=== PATIENT | female | born 2000 ===

== ENCOUNTER 2021-12-23 23:49 | Emergency (ER) | payer SELFPAY ==
[2021-12-24 00:02] VITALS: BP 109/49
[2021-12-24 00:26] LABS: Bilirubin,Urine NEG (Negative); Blood,Urine NEG (Negative); Color,Urine Yellow (Yellow); Protein,Urine <15 mg/dL mg/dL (Negative); Urobilinogen,Urine < 2.0 mg/dL (<2.0)
[2021-12-24 00:30] LABS: Mucus,Urine FEW /HPF
[2021-12-24 00:52] LABS: Basophils % (Auto) 0.4 % (0.0-1.8); Eosinophils # (Auto) 0.1 K/mm3 (0.0-0.4); Eosinophils % (Auto) 1.1 % (0.0-4.3); Hematocrit 38.4 % (30.3-42.9); Hemoglobin 13.4 gm/dl (10.1-14.3); Lymphocytes # (Auto) 2.3 K/mm3 (1.2-5.4); Lymphocytes % (Auto) 27.2 % (13.4-35.0); Mean Corpuscular HGB Conc 35 % (30-34); Mean Corpuscular Volume 95 fl (79-97); Monocytes # (Auto) 0.6 K/mm3 (0.0-0.8); Monocytes % (Auto) 7.1 % (0.0-7.3); Platelet Count 199 K/mm3 (140-440); Red Blood Count 4.06 M/mm3 (3.65-5.03); Red Cell Distribution Width 13.9 % (13.2-15.2)
--- NOTE | 2021-12-24 03:29 | Ultrasound Report ---
US OB <= 14 weeks fetus INDICATION / CLINICAL INFORMATION: abdominal cramps beta hCG 128,596. COMPARISON: None available. TECHNIQUE: Using a transcutaneous probe, multiple grayscale, color Doppler, and spectral Doppler imag es of the uterus and fetus were captured and stored. FINDINGS: The uterus measures 9.5 x 7.1 x 7.4 cm. A single intrauterine gestational sac containing a fetus is p resent. Mean crown-rump length of 37.5 mm correlates with an estimated gestational age of 10 weeks 5 days. EDC 07/17/2022. pole, yolk sac, and motion are present. heart rate is 169 bpm. Right ovary is not identified secondary to bowel gas. Left ovary measures 3.9 x 2.4 x 1.5 cm and appears within normal limits. Urinary bladder is not well distended. IMPRESSION: 1. Single living fetus with estimated gestational age of 10 weeks 5 days. Signer Name: Joseph Claros II, MD Signed: 12/24/2021 3:24 AM Workstation Name: [id number]
== END 2021-12-24 04:30 | disposition left against medical advice (07) ==
LOC: ED 23:49
DX: O26.891 Other specified pregnancy related conditions, first trimester (principal); R10.9 Unspecified abdominal pain; Z3A.12 12 weeks gestation of pregnancy; Z53.21 Procedure and treatment not carried out due to patient leaving prior to being seen by health care provider
CPT/HCPCS: 36415; 76801; 81001; 84702; 85025; 86900; 86901